=== PATIENT | female | born 1970 | race Caucasian/White ===

== ENCOUNTER 2020-04-17 09:30 | Emergency (ER) | payer OTHER ==
[2020-04-17 09:46] VITALS: BP 145/86; PULSE 61; TEMP 98.2; BMI 27.4
[2020-04-17] MEDS ORDERED: ACETAMINOPHEN 325 MG TABLET (FP) PO ONE (09:53)
[2020-04-17] MEDS ORDERED: ACETAMINOPHEN 325 MG TABLET (FP) ONE (10:00)
--- NOTE | 2020-04-17 10:35 | PDOC ---
History of Present Illness - General Chief Complaint: Pain Stated Complaint: PAIN TO LEFT BACK UNDER SHOULDER BLADE Time Seen by Provider: 04/17/20 09:38 History Source: Patient Exam Limitations: No Limitations - History of Present Illness Initial Comments: 04/17/20 10:29 50 yo F p/w L upper back pain since today. Reports pain is sharp and feels like a muscle tightening/spasm. Jhonatan having this before. Reports having intercourse last night and then again this mornign prior to the onset of symptoms. Denies SOB but states pain is so severe she can't take a deep breath. Denies any direct trauma or falls. Denies numbness/weakness in extremities. Denies CP, abdominal pain, n/v. Did not take anythign for pain prior to arrival. Denies fevers. Reports pain is worse with lifting L arm or moving torso. No other complaints. Past History - Medical History Allergies/Adverse Reactions: Allergies Allergy/AdvReac Type Severity Reaction Status Date / Time Penicillins Allergy Verified 08/19/16 12:58 Home Medications: Ambulatory Orders NK [No Known Home Medication] 04/17/20 COPD: Yes (MILD) GI Disorders: Yes (ulcer) HTN: Yes (border line) - Immunization History Immunization Up to Date: Yes - Psycho-Social/Smoking History Smoking History: Former smoker Have you smoked in the past 12 months: No Number of Cigarettes Smoked Daily: 1 If you are a former smoker, when did you quit?: 5 YEARS Information on smoking cessation initiated: No 'Breaking Loose' booklet given: 08/19/16 - Substance Abuse Hx (Audit-C & DAST Scrn) How often the patient has a drink containing alcohol: Monthly or less Score: In Men: 4 or > Positive; In Women: 3 or > Positive: 1 Screen Result (Pos requires Nsg. Audit-10AR): Negative Review of Systems - Review of Systems Able to Perform ROS?: Yes Comments:: 04/17/20 10:32 GENERAL/CONSTITUTIONAL: No fever or chills. No weakness. HEAD, EYES, EARS, NOSE AND THROAT: No change in vision. No ear pain or discharge. No sore throat. CARDIOVASCULAR: No chest pain or shortness of breath. RESPIRATORY: No cough, wheezing, or hemoptysis. GASTROINTESTINAL: No nausea, vomiting, diarrhea or constipation. GENITOURINARY: No dysuria, frequency, or change in urination. MUSCULOSKELETAL: No joint or muscle swelling or pain. No neck pain, +back pain. SKIN: No rash. NEUROLOGIC: No headache, vertigo, loss of consciousness, or change in strength/sensation. ENDOCRINE: No increased thirst. No abnormal weight change. HEMATOLOGIC/LYMPHATIC: No anemia, easy bleeding, or history of blood clots. ALLERGIC/IMMUNOLOGIC: No hives or skin allergy. *Physical Exam - Vital Signs Last Vital Signs Temp Pulse Resp BP Pulse Ox 98.2 F 61 18 145/86 100 04/17/20 09:36 04/17/20 09:36 04/17/20 09:36 04/17/20 09:36 04/17/20 09:36 - Physical Exam 04/17/20 10:33 GENERAL: Well appearing, in no acute distress HEAD: NCAT EYES: EOMI, sclera anicteric, conjunctiva clear ENT: Auricles normal inspection, nares patent, oropharynx clear without exudates. MMM NECK: Normal ROM, supple LUNGS: CTAB. Good air entry. No wheezes, No Rhonchi and no crackles HEART: RRR, + s1 s2, no murmurs, rubs or gallops ABDOMEN: Soft, nontender, normoactive bowel sounds. No guarding, no rebound. No masses BACK: no midline. No CVA tenderness. +L upper back hypertonicity below scapula with mild ttp EXTREMITIES: Warm and well perfused. No LE edema. FROM. No clubbing or cyanosis. No cords, erythema, or tenderness, Strenth 5/5 dorsiflexion/plantarflexion, hand natural resources manager flexion/extension and wrists and ankles and hips, sensation intact to light touch. NEUROLOGICAL: Aox3, Speech fluent, face symmetric, tongue/uvula midline. Ambulatory with steady gait. Strength intact. No focal deficits. SKIN: Warm, dry, normal turgor, no rashes or lesions noted. ED Treatment Course - RADIOLOGY Radiology Studies Ordered: Category Date Time Status CHEST PA & LAT [RAD] Stat Radiology 04/17/20 09:53 Ordered - Medications Given in the ED: ED Medications Discontinued Medications Generic Name Dose Route Start Last Admin Trade Name Freq PRN Reason Stop Dose Admin Acetaminophen 650 mg 04/17/20 09:53 04/17/20 10:01 Tylenol - PO 04/17/20 09:54 650 mg ONCE ONE Administration Medical Decision Making - Medical Decision Making 04/17/20 10:35 50 yo F with L upper back pain, no infectious complaints, exam notable for hypertonicity of L upper back but otherwise neurologically intact, likely muscular pain/strain possibly 2/2 intercourse. Lower suspicion for PNA as no infectious complaints and lungs CTAB however given location will get cxr to r/o. Doubt ACS as no chest pain and hx and exam more consistent with msk etiology. Plan: -cxr -tylenol -reassess This clinical encounter is taking place during a federal and state health care emergency attributable to the novel [place] Virus pandemic. The [employer] of the Department of Health and Human Services has declared, pursuant to the Public Health Service Act 319F-3 (42 U.S[place]C. 247d-6d), that a covered persons activities related to medical countermeasures against COVID-19 will be immune from liability under Federal and State law. 04/17/20 10:55 xray negative for acute findings. Patient with improvement in pain. Will d/c with return precautions. Recommend tylenol or motrin at home as needed for pain and PMD f/u. Pt. verbalized understanding and agreeable to plan. Discharge - Discharge Information Problems reviewed: Yes Clinical Impression/Diagnosis: Back pain Qualifiers: Back pain location: thoracic back pain Chronicity: acute Back pain laterality: left Qualified Code(s): M54.6 - Pain in thoracic spine Condition: Improved Disposition: HOME - Admission No - Follow up/Referral - Patient Discharge Instructions Patient Printed Discharge Instructions: Thoracic Back Pain, DI for Thoracic Back Pain Additional Instructions: Your xray did not show any concerning findings. You can take tylenol or motrin at home as needed for pain. You can apply warm compresses to the area for additional pain relief. You should follow up with your PMD. Return to the ED for new or worsening symptoms. Print Language: [id number] - Post Discharge Activity Work/Back to School Note: Back to Work
== END 2020-04-17 11:25 | disposition home or self-care (01) ==
LOC: FER 09:30
DX: M54.6 Pain in thoracic spine (principal)
CPT/HCPCS: 71046-TC-FY; 99284-25

== ENCOUNTER 2022-08-07 04:30 | Day surgery (SDC) | payer OTHER ==
[2022-08-06 14:12] VITALS: BMI 28.4
[2022-08-07 09:27] VITALS: TEMP 97.2
[2022-08-07] MEDS ORDERED: ONDANSETRON 4 MG/2 ML VIAL IVPUSH PRN (09:39)
[2022-08-07] MEDS ORDERED: LACTATED RINGERS SOLUTION 1,000 ML IV SCH (09:45)
[2022-08-07 10:17] VITALS: BP 142/98; PULSE 56; RESP 16
== END 2022-08-07 10:31 | disposition home or self-care (01) ==
LOC: JASU-ENDO 04:30
PROVIDERS: ATTEND Internal Medicine Gastroenterology
PROC: 0DB78ZX Excision of Stomach, Pylorus, Via Natural or Artificial Opening Endoscopic, Diagnostic (ICD-10-PCS; 2022-08-07)
PROC: 0DBN8ZX Excision of Sigmoid Colon, Via Natural or Artificial Opening Endoscopic, Diagnostic (ICD-10-PCS; principal; 2022-08-07 08:45)
DX: Z12.11 Encounter for screening for malignant neoplasm of colon (principal); K63.5 Polyp of colon; K29.70 Gastritis, unspecified, without bleeding; B96.81 Helicobacter pylori [H. pylori] as the cause of diseases classified elsewhere
CPT/HCPCS: 81025; 88305-TC; 88342-TC

== ENCOUNTER 2025-08-13 11:50 | Emergency (ER) | payer OTHER ==
[2025-08-13] MEDS ORDERED: KETOROLAC TROMETHAMINE 30 MG/1 ML VIAL ONE (12:18)
[2025-08-13 12:19] VITALS: BP 135/100; PULSE 63; RESP 15; TEMP 98.6; BMI 25.7
[2025-08-13] MEDS: KETOROLAC TROMETHAMINE 30 MG/1 ML VIAL IM ONE (12:29)
== END 2025-08-13 13:30 | disposition home or self-care (01) ==
LOC: FER 11:50
PROC: 3E0233Z Introduction of Anti-inflammatory into Muscle, Percutaneous Approach (ICD-10-PCS; principal; 2025-08-13)
DX: S39.012A Strain of muscle, fascia and tendon of lower back, initial encounter (principal); X50.1XXA Overexertion from prolonged static or awkward postures, initial encounter
CPT/HCPCS: 99284-25